=== PATIENT | female | born 1995 | race African-American/Black ===

== ENCOUNTER 2017-03-28 09:25 | Emergency (ER) | payer MEDICAID, SELFPAY ==
[2017-03-28 10:01] LABS: Bilirubin Small (Negative); Blood, Urine Small (Negative); Glucose, Urine (Dipstick) Negative (Negative); Ketone, Urine 15 mg/dL (Negative); Nitrite Negative (Negative); Protein, Urine (Dipstick) Trace mg/dL (Neg-Trace)
[2017-03-28 10:02] LABS: Bacteria/HPF Rare-Few HPF (None Seen); Hyaline Casts/LPF 0-3 HYALINE CAST LPF (0-3 Hyaline)
[2017-03-28] MEDS ORDERED: Dexamethasone 4 mg/ml Vial ONE (12:10)
[2017-03-28] MEDS ORDERED: Ketorolac Tromethamine 30 MG/ML VIAL ONE (12:10)
== END 2017-03-28 12:55 | disposition home or self-care (01) ==
LOC: ERS 09:25
DX: J02.0 Streptococcal pharyngitis (principal); G43.909 Migraine, unspecified, not intractable, without status migrainosus
CPT/HCPCS: 81003; 81015; 87430; 96372; J1100; J1885

== ENCOUNTER 2019-02-25 09:58 | Emergency (ER) | payer MEDICAID, SELFPAY ==
[2019-02-25] MEDS ORDERED: Bicillin LA 1.2 MILLION UNITS/2 ML SYRINGE ONE (11:23)
== END 2019-02-25 11:50 | disposition home or self-care (01) ==
LOC: ERS 09:58
DX: J02.9 Acute pharyngitis, unspecified (principal); G43.909 Migraine, unspecified, not intractable, without status migrainosus
CPT/HCPCS: 87081; 87430; 96372; 99283; J0561

== ENCOUNTER 2020-12-10 14:45 | Emergency (ER) | payer SELFPAY ==
[2020-12-10 15:55] LABS: Bilirubin Negative (Negative); Blood, Urine Negative (Negative); Clarity Turbid (Clear); Glucose, Urine (Dipstick) Normal (Negative); Ketone, Urine Negative (Negative); Leukocyte Negative Leu/uL (Negative); Nitrite Negative (Negative); Protein, Urine (Dipstick) Negative (Neg-Trace); Specific Gravity, Urine 1.016 (1.002-1.036); Urobilinogen Normal mg/dL (Less than 2); pH, Urine 5.5 (5.0-9.0)
[2020-12-10 15:57] LABS: Pregnancy Test - Urine (BHCG) Negative (Negative); Pregu Control Bar Appear? YES (CONTROL BAR); Specific Gravity 1.016 (1.002-1.036)
[2020-12-10 15:58] LABS: Pregu Control Background? CLEAR/WHITE (CLR/WHITE)
== END 2020-12-10 16:15 | disposition home or self-care (01) ==
LOC: ERS 14:45
DX: R30.0 Dysuria (principal)
CPT/HCPCS: 81003; 81025; 99283